=== PATIENT | female | born 1940 | race Caucasian/White ===

== ENCOUNTER 2018-03-26 09:57 | Day surgery (SDC) | payer MEDICARE, BC ==
[2018-03-19 15:10] VITALS: BMI 28.1
[~2018-03-26 09:57] MED LIST: MOXIFLOXACIN HCL 0.5% DROPS 3 ML BTL OP ONE; TETRACAINE 0.5% OPHTH (PF) DROPS 4 ML BTL OP ONE; TIMOLOL 0.5% OPHTH DROPS 5 ML BTL OP ONE
[2018-03-26] MEDS: PHENYLEPHRINE 2.5% OPHTH DRP 2ML OP NR ×3 (12:18→12:34)
[2018-03-26] MEDS: CYCLOPENTOLATE 1% OPHTH SOLN 2 ML BTL OP ONE ×3 (12:21→12:39)
[2018-03-26 12:22] VITALS: TEMP 96.5
[2018-03-26] MEDS ORDERED: LIDOCAINE 1% 20 ML VIAL (10MG/ML) FOR IV START INTRADERMA ONE (12:35)
[2018-03-26] MEDS ORDERED: LACTATED RINGERS 1,000 ML IV ONE ×2 (12:38)
[2018-03-26] MEDS ORDERED: BALANCED SALT IRRIG SOLN COMB2 500 ML IRRIGATION ONE (12:51)
[2018-03-26] MEDS ORDERED: LIDOCAINE 1% INJ 10MG/ML (10 ML MDV) SQ ONE (12:52)
[2018-03-26] MEDS ORDERED: DUOVISC KIT (GREEN BOX) INTRAOCULA ONE (12:53)
[2018-03-26] MEDS ORDERED: MIDAZOLAM 2 MG/2 ML VIAL ONE (12:55)
[2018-03-26] MEDS ORDERED: EPINEPHrine (PF) 0.3 ML in BALANCED SALT IRRIG SOLN COMB2 500 ML IRRIGATION ONE (13:02)
[2018-03-26] MEDS ORDERED: ACETYLCHOLINE CHLORIDE 10 MG/ML 2 ML KIT INTRAOCULA ONE (13:05)
--- NOTE | 2018-03-26 13:30 | P.OP ---
Date of Procedure: 03/26/18 Preoperative Diagnosis: POAG moderate Postoperative Diagnosis: same Procedure(s) Performed: goniotomy, OS Implants: none Anesthesia: MAC Surgeon: Grzegorz Moulton Estimated Blood Loss (ml): 2 Pathology: none sent Condition: stable Disposition: same day Indications for Procedure: glaucoma Operative Findings: No complications
[2018-03-26 13:31] VITALS: BP 123/72; PULSE 67; RESP 18
--- NOTE | 2018-03-26 19:39 | OP ---
OPERATIVE REPORT DATE OF SURGERY: 03/26/2018. PROCEDURE: Goniotomy of the left eye. PREOPERATIVE DIAGNOSIS: Primary open-angle glaucoma, moderate stage. POSTOPERATIVE DIAGNOSIS: Primary open-angle glaucoma, moderate stage. SURGEON: Dr. Grzegorz Moulton ANESTHESIA: Topical. ESTIMATED BLOOD LOSS: 2 mL. SPECIMEN TAKEN: None. NARRATIVE: After obtaining the appropriate consent, the patient was brought to the operating room. There she was placed under cardiac monitoring, prepped and draped in the usual sterile manner. She was approached from her left temporal side and at the 3 o'clock position, a 2.5 mm keratome was used to create a self-sealing corneal flap incision. Through this opening 1% Xylocaine MPF 50:50 mix with balanced salt solution was injected into the anterior chamber. This was followed by stabilization of the anterior chamber with Viscoat. A small amount of the Viscoat was also placed on the patient's cornea. She was then rotated approximately 45 degrees to her right and a gonioprism was placed on the eye. The trabecular meshwork was easily identified, and using the [employer] double blade goniotomy knife, the avinash and meet technique was used to strip the trabecular meshwork from the nasal side of the eye. Approximately 4 clock hours was effectively removed with the appropriate bleeding response. Once this was accomplished, the remaining viscoelastic was removed from the anterior chamber using irrigation and aspiration and the eye was brought to normal intraocular pressure through the temporal incision. There was a concern that the eye would not remain watertight, however, so a single 10-0 nylon suture was placed through the temporal incision with good approximation of the wound edges and confirmation that the intraocular pressure remained in the 20 to 25 mm range. She then received 2 drops of 0.5% timolol followed by 2 drops of moxifloxacin and was then lightly patched and shielded in the usual manner. There were no complications from the procedure. She tolerated the procedure well and was returned to Outpatient Recovery in good condition. MMODL / ANDREWSN: [id number] / COLLETTE
== END 2018-03-26 14:13 | disposition home or self-care (01) ==
LOC: OR 09:57
PROVIDERS: ATTEND Ophthalmology
DX: H40.1132 Primary open-angle glaucoma, bilateral, moderate stage (principal); H47.393 Other disorders of optic disc, bilateral; H16.223 Keratoconjunctivitis sicca, not specified as Sjogren's, bilateral; H00.026 Hordeolum internum left eye, unspecified eyelid; H52.4 Presbyopia; H52.13 Myopia, bilateral; D31.31 Benign neoplasm of right choroid; Z96.1 Presence of intraocular lens; E03.9 Hypothyroidism, unspecified; Z79.890 Hormone replacement therapy; Z79.899 Other long term (current) drug therapy; Z88.6 Allergy status to analgesic agent
CPT/HCPCS: 65820; J2250; J0171; J2001

== ENCOUNTER 2018-06-11 06:02 | Day surgery (SDC) | payer MEDICARE, BC ==
[2018-06-09 15:37] VITALS: BMI 28.5
[~2018-06-11 06:02] MED LIST changes: +LACTATED RINGERS 1,000 ML IV SCH; +LIDOCAINE 1% 20 ML VIAL (10MG/ML) FOR IV START INTRADERMA PRN; +MOXIFLOXACIN HCL 0.5% DROPS 3 ML BTL OP NR; -MOXIFLOXACIN HCL 0.5% DROPS 3 ML BTL OP ONE; +TETRACAINE 0.5% OPHTH (PF) DROPS 4 ML BTL OP NR; -TETRACAINE 0.5% OPHTH (PF) DROPS 4 ML BTL OP ONE; +TIMOLOL 0.5% OPHTH DROPS 5 ML BTL OP NR; -TIMOLOL 0.5% OPHTH DROPS 5 ML BTL OP ONE
[2018-06-11] MEDS: PILOCARPINE 2% OPHTH DROPS 15 ML BTL OP NR ×2 (06:40→07:33)
[2018-06-11 06:52] VITALS: RESP 16; TEMP 97.2
[2018-06-11] MEDS ORDERED: fentaNYL (PF) 50 MCG/ML 2 ML AMP ONE (07:25)
[2018-06-11] MEDS ORDERED: MIDAZOLAM 2 MG/2 ML VIAL ONE (07:25)
[2018-06-11] MEDS ORDERED: BALANCED SALT IRRIG SOLN COMB2 15 ML IRRIG.SOLN IRRIGATION ONE (07:32)
[2018-06-11] MEDS ORDERED: CHONDROITIN-SOD HYALURONATE 1 EACH SYRINGE (0.75 ML) INTRAOCULA ONE (07:33)
[2018-06-11] MEDS ORDERED: LIDOCAINE 1% (PF) 10MG/ML VIAL SQ ONE (07:34)
[2018-06-11] MEDS ORDERED: EPINEPHrine (PF) 0.3 ML in BALANCED SALT IRRIG SOLN COMB2 500 ML IRRIGATION ONE (07:35)
--- NOTE | 2018-06-11 08:03 | P.OP ---
Date of Procedure: 06/11/18 Preoperative Diagnosis: POAG Postoperative Diagnosis: same Procedure(s) Performed: goniotomy OD Implants: none Anesthesia: MAC Surgeon: Grzegorz Moulton Estimated Blood Loss (ml): 3 Pathology: none sent Condition: stable Disposition: same day Indications for Procedure: glaucoma Operative Findings: no comlpications
[2018-06-11 08:22] VITALS: BP 147/78; PULSE 67
--- NOTE | 2018-06-11 23:47 | OP ---
OPERATIVE REPORT DATE OF SERVICE: 06/11/2018. PROCEDURE: Goniotomy of the right eye. PREOPERATIVE DIAGNOSIS: Moderate stage glaucoma. POSTOPERATIVE DIAGNOSIS: Moderate stage glaucoma. SURGEON: Dr. Grzegorz Moulton. ANESTHESIA: Topical. ESTIMATED BLOOD LOSS: 2 mL. SPECIMEN TAKEN: None. NARRATIVE: After obtaining the appropriate consent, the patient was brought to the operating room. There she was placed on cardiac monitoring, prepped and draped in the usual sterile manner. She was approached from her right temporal side. At the 9 o'clock position, a 2.5 mm keratome was used to create a self-sealing corneal flap incision in [place] fashion. Viscoat was placed. Lidocaine 1% MPF in balanced salt solution was injected into the anterior chamber. This was followed by stabilization of the anterior chamber with Viscoat. The patient was then asked to rotate her head approximately 45 degrees to her left. A gonial prism was placed on the patient's eye and the trabecular meshwork was identified. Using a avinash and meet method, the [employer] dual blade goniotomy knife was passed across the anterior chamber and an initial incision was performed at approximately the 1 o'clock position into the trabecular meshwork. Moving the knife in a clockwise fashion, a second point at approximately 5 o'clock on the trabecular meshwork was identified and the blade was advanced through the trabecular meshwork to the original 1 o'clock position. Moderate amount of bleeding was noticed as expected. The knife was removed from the anterior chamber. The remaining viscoelastic was then also removed under irrigation and aspiration. The eye was brought to normal intraocular pressure through the temporal incision and the incision was hydrated to maintain water-tight integrity. She then received 2 drops of 0.5% timolol followed by 2 drops of Vigamox and 2 drops of 2% pilocarpine. She was lightly patched and shielded in the usual manner. There were no complications from the procedure. She tolerated the procedure well and returned to outpatient recovery in good condition. MMODL / IJN: [id number] /
== END 2018-06-11 08:32 | disposition home or self-care (01) ==
LOC: OR 06:02
PROVIDERS: ATTEND Ophthalmology
DX: H40.1132 Primary open-angle glaucoma, bilateral, moderate stage (principal); H47.393 Other disorders of optic disc, bilateral; H16.223 Keratoconjunctivitis sicca, not specified as Sjogren's, bilateral; H00.026 Hordeolum internum left eye, unspecified eyelid; H52.4 Presbyopia; H52.13 Myopia, bilateral; D31.31 Benign neoplasm of right choroid; E03.9 Hypothyroidism, unspecified; Z96.1 Presence of intraocular lens; Z79.890 Hormone replacement therapy; Z88.6 Allergy status to analgesic agent
CPT/HCPCS: 65820; J2250; J0171; J3010; J2001